=== PATIENT | male | born 1995 | race Caucasian/White ===

== ENCOUNTER 2020-06-11 14:13 | Emergency (ER) | payer SELFPAY ==
[~2020-06-11] VITALS: Ht 165.1 cm; Wt 59.0 kg
[2020-06-11 14:16] VITALS: BP 137/90
--- NOTE | 2020-06-11 14:54 | NUR ---
25 YEAR OLD MALE COMPLAINS OF CHEST PAIN X LAST NIGHT. PT STATES PAIN IS NONRADIATING AND PRESSURE. PT SAYS SOME SOB WHEN LAYING DOWN, BUT DENIES N/V/D. PT AOX4, BREATHING EVEN AND UNLABORED, SKIN WARM AND DRY. BED IN LOWEST POSITION, LOCKED, BED RAIL UPX1. PMH - ASTHMA ALLERGIES - NKA
[2020-06-11] MEDS ORDERED: KETOROLAC 60 MG/2 ML VIAL IM ONE (16:20)
[2020-06-11] MEDS ORDERED: IBUP-2213 PO (16:21)
--- NOTE | 2020-06-11 16:30 | NUR ---
Patient discharged with v/s stable. Written and verbal after care instructions about chest wall pain given and explained. Patient alert, oriented and verbalized understanding of instructions. Ambulatory with steady gait. All questions addressed prior to discharge. ID band removed. Patient advised to follow up with PMD. Rx of ibuprofen given. Patient educated on indication of medication including possible reaction and side effects. Opportunity to ask questions provided and answered.
[2020-06-11 16:37] VITALS: BP 129/90
== END 2020-06-11 16:30 | disposition home or self-care (01) ==
LOC: MED 14:13
DX: R07.89 Other chest pain (principal); J45.909 Unspecified asthma, uncomplicated
CPT/HCPCS: 71045; 93005; 96372; 99283; J1885

== ENCOUNTER 2020-06-12 23:19 | Emergency (ER) | payer MEDICAID ==
[~2020-06-12] VITALS: Ht 170.2 cm; Wt 59.0 kg
[~2020-06-12 23:19] MED LIST: IBUP-2213 PO
--- NOTE | 2020-06-12 23:31 | NUR ---
PT TAKEN TO BED 9
[2020-06-12 23:35] VITALS: BP 151/99
--- NOTE | 2020-06-12 23:35 | NUR ---
PATIENT BIB SELF C/O 10 CHEST "PRESSURE" X 2 DAYS. PATIENT REPORTS "MY DAD HAS HIGH BLOOD PRESSURE AND I TOOK HIS MEDICATION CALLED LOSARTAN AT HOME." PATIENT REPORTS HE TOOK 50GM OF LOSARTAN. 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 NO APPARENT DISTRESS NOTED AT THIS TIME. A&O X4. BED LOCKED AND IN LOWEST POSITION. MED HX: ASTHMA ALLERGIES: NKA
--- NOTE | 2020-06-13 00:10 | NUR ---
ERMD AT BEDSIDE.
[2020-06-13] MEDS ORDERED: diphenhydrAMINE 50 MG CAP PO ONE (00:30)
[2020-06-13 01:13] VITALS: BP 148/96
--- NOTE | 2020-06-13 01:13 | NUR ---
Patient discharged with v/s stable. Written and verbal after care instructions given and explained. Patient verbalized understanding. Ambulatory with steady gait. All questions addressed prior to discharge. Advised to follow up with PMD.
== END 2020-06-13 01:13 | disposition home or self-care (01) ==
LOC: MED 23:19
DX: F41.9 Anxiety disorder, unspecified (principal); J45.909 Unspecified asthma, uncomplicated; Z79.899 Other long term (current) drug therapy
CPT/HCPCS: 99282; Q0163